=== PATIENT | female | born 1965 | race Caucasian/White ===

== ENCOUNTER 2021-10-03 10:29 | Outpatient (CLI) | payer SELFPAY ==
--- NOTE | 2021-10-11 09:35 | Mammography Report ---
BILATERAL DIGITAL SCREENING MAMMOGRAM 3D/2D: 10/03/2021 CLINICAL: Routine screening. No prior exams were available for comparison. There are scattered fibroglandular elements in both br easts. There are benign calcifications in the right breast. There is a mole marker on the left breast. No significant masses, calcifications, or other findings are seen in either breast. IMPRESSION: BENIGN There is no mammographic evidence of malignancy. A 1 year screening mammogram is recommended. This exam was interpreted at Station ID: [id number]. NOTE: For mammograms, a report in lay terms will be sent to the patient. Approximately 15% of breast malignancies will not be visualized mammographically. In the management of a palpable breast mass, a negative mammogram must not discourage biopsy of a clinically suspicious lesion. Electronically Signed By: Natalio cohen/isra:10/10/2021 09:14:20 ACR BI-RADS Category 2: Benign Finding(s) 3342F PARENCHYMAL PATTERN: (A) - The breast(s) demonstrate(s) scattered fibroglandular densities. BI-RADS CATEGORY: (2) - 2 RECOMMENDATION: (ANNUAL) - Recommend routine annual screening mammography. [id number] 1 year screening LATERALITY: (B)
== END 2021-10-03 10:30 | disposition home or self-care (01) ==
LOC: DI.N 10:29
PROVIDERS: ATTEND Internal Medicine
DX: Z12.31 Encounter for screening mammogram for malignant neoplasm of breast (principal)

== ENCOUNTER 2022-01-23 12:41 | Emergency (ER) | payer BC ==
--- NOTE | 2022-01-23 13:01 | ED Physician Documentation ---
PD HPI HEADACHE - Stated complaint Stated Complaint: HEAD/NECK PX - Chief complaint Chief Complaint: General - History obtained from History obtained from: Patient - History of Present Illness Timing - onset: How many days ago (3) Timing - duration: Days (3) Timing - details: Gradual onset, Still present Worst headache ever?: Worst headache ever? Location: Left Quality: Throbbing, Aching Associated symptoms: Other (red spotty rash is developing today.). No: Fever, Stiff neck, Nausea, Vomiting Contributing factors: Recent illness (she states had some URI symptoms couple of weeks ago.). No: Anticoagulated, Hypertension, Trauma Review of Systems Constitutional: denies: Fever, Chills Eyes: denies: Loss of vision, Decreased vision, Photophobia, Irritation Nose: denies: Rhinorrhea / runny nose, Congestion Throat: denies: Sore throat Cardiac: denies: Chest pain / pressure Respiratory: denies: Cough GI: reports: Nausea. denies: Abdominal Pain, Vomiting, Diarrhea Skin: reports: Rash (just starting today. Has had the facial pain for 3 days none too gradually increasing.) Neurologic: denies: Focal weakness, Numbness, Confused, Altered mental status, Headache (facial pain she clarifies.) PD PAST MEDICAL HISTORY - Past Medical History Cardiovascular: None Neuro: None - Present Medications Home Medications: Ambulatory Orders Medication Instructions Recorded Confirmed Amitriptyline [Elavil] 25 mg PO HS #20 tablet 01/23/22 Valacyclovir HCl [Valtrex] 1,000 mg PO TID #20 tablet 01/23/22 dexAMETHasone [Decadron] 4 mg PO DAILY #5 tablet 01/23/22 oxyCODONE [Roxicodone] 5 mg PO Q6H PRN #20 tablet 01/23/22 - Allergies Allergies/Adverse Reactions: Allergies Allergy/AdvReac Type Severity Reaction Status Date / Time escitalopram [From Lexapro] Allergy Anxiety Verified 01/23/22 12:46 metronidazole [From Flagyl] Allergy Emesis Verified 01/23/22 12:50 - Living Situation Living Situation: reports: With family Living Arrangement: reports: At home PD ED PE NORMAL - General General: Alert and oriented X 3, Well developed/nourished, Other (appears in notable pain left side of face. ) - HEENT HEENT: Atraumatic, PERRL, EOMI, Ears normal, Pharynx benign - Neck Neck: Supple, no meningeal sign, No bony TTP, No adenopathy, C-Spine cleared by NEXUS criteria - Cardiac Cardiac: RRR, No murmur - Respiratory Respiratory: No respiratory distress - Abdomen Abdomen: Soft, Non tender - Derm Derm: Normal color, Warm and dry, Other (left side of face has tenderness to light touch and palpation. There are several small red patches with points/prevesicals in clusters. Does not cross to right at all and demarcates under chin, toward the neck on left only.) - Neuro Neuro: Alert and oriented X 3, No motor deficit, Normal speech Results - Vitals Vitals: Vital Signs - 24 hr 01/23/22 01/23/22 01/23/22 12:47 12:49 13:51 Temperature 36.5 C 36.5 C 36.5 C Heart Rate 100 100 90 Respiratory 16 16 16 Rate Blood Pressure 154/88 H 154/88 H 140/80 H O2 Saturation 98 98 98 Oxygen O2 Source Room air PD MEDICAL DECISION MAKING - ED course Complexity details: considered differential (looks and sounds like shingles. ), d/w patient Departure - Departure Disposition: Home, Self Care Clinical Impression: Acute trigeminal herpes zoster Condition: Stable Record reviewed to determine appropriate education?: Yes Instructions: ED Shingles Follow-Up: Gale Patel MD [Primary Care Provider] - Prescriptions: dexAMETHasone [Decadron] 4 mg PO DAILY #5 tablet Amitriptyline [Elavil] 25 mg PO HS #20 tablet oxyCODONE [Roxicodone] 5 mg PO Q6H PRN #20 tablet PRN Reason: Pain Valacyclovir HCl [Valtrex] 1,000 mg PO TID #20 tablet Comments: This looks like a shingles outbreak which is a remnant chickenpox virus coming out in the nerve root. We will treat this with Dona acyclovir antiviral medicine 3 times a day for a week as well as Decadron steroid dose for the next 5 days. I realize you are on low-dose prednisone for your psoriasis. Hold that dose for now and resume the taper you were on after the 5 days. Also add amitriptyline low-dose at night for the next few weeks to try to help with the nerve pain component of this. Continue your other usual medicines. Add Tylenol 500 mg 4 times daily to help with pain and oxycodone every 6 hours if needed for worse pain. There should be a diminishing of the pain after few days on the medications. I sent your prescriptions to your pharmacy. I am prescribing a short course of narcotic pain medication for you. These are potentially dangerous and addictive medications that should be used carefully. These medications may constipate you. Take an chud-uur-ztphyca stool softener such as docusate twice daily with plenty of water while taking these medications. If you go 24 hours without a bowel movement, take [id number] MiraLAX, per package instructions. Do not drink or drive while taking these medications. If you received narcotic or sedating medications while in the emergency department do not drive for 24 hours. Store this medication in a safe, secure place and out of reach of children. It is a violation of federal law to give or sell this medication to another person or to use in a manner other than prescribed. The ED will not refill narcotic prescriptions, including prescriptions lost or stolen. You can dispose of unwanted medications at the [facility]'s office or at several pharmacies such as [facility]. Discharge Date/Time: 01/23/22 13:51
[2022-01-23] MEDS ORDERED: ONDANSETRON ODT 4 MG TABLET TL STA (13:24)
[2022-01-23] MEDS ORDERED: KETOROLAC 30 MG/ML VIAL IM STA (13:24)
[2022-01-23] MEDS ORDERED: DEXAMETHASONE 10 MG/ML VIAL PO STA (13:24)
[2022-01-23] MEDS ORDERED: CHERRY SYRUP 10 ML UDC PO ONE (13:24)
[2022-01-23] MEDS ORDERED: HYDROmorphone 1 MG/ML CARPUJECT IM STA (13:24)
[2022-01-23] MEDS ORDERED: valACYclovir 500 MG TABLET PO STA (13:35)
[2022-01-23 13:52] VITALS: BP 140/80
[2022-01-23] MEDS ORDERED: valACYclovir 500 MG TABLET PO SCH (14:00)
== END 2022-01-23 13:51 | disposition home or self-care (01) ==
LOC: ED 12:41
DX: B02.22 Postherpetic trigeminal neuralgia (principal)
CPT/HCPCS: 96372; 99284; A9270; J1170; Q0162

== ENCOUNTER 2022-05-22 10:56 | Outpatient (CLI) | payer BC ==
[2022-05-22 11:14] LABS: CREATININE 0.6 mg/dL (0.4-1.0)
[2022-05-22] MEDS ORDERED: iohexoL-300 100 ML VIAL ONE (11:18)
--- NOTE | 2022-05-22 15:36 | CT Report ---
PROCEDURE: SOFT TISSUE NECK W INDICATIONS: MASS OR LUMP OF NECK CONTRAST: 100ml Omnipaque 300 TECHNIQUE: After the administration of intravenous contrast, 3.0 mm axial sections acquired from the sella to th e aortic arch. Additional oblique axial 3.0 mm sections acquired through the pharynx. 3 mm thick co savanna reformats were generated. For radiation dose reduction, the following was used: automated exp osure control, adjustment of mA and/or kV according to patient size. COMPARISON: None. FINDINGS: Image quality: Excellent. Lymph nodes: No enlarged lymph nodes seen throughout the neck. Vessels: Visualized vasculature appears patent. Neck spaces: The oropharynx, nasopharynx, and pharynx demonstrate no mucosal lesions. The vocal cor ds, false vocal cords, pyriform sinuses, epiglottis, vallecula, and tongue base all appear normal. E xtramucosal spaces appear unremarkable. Glands: The parotid and submandibular glands appear normal. The thyroid is normal in size and there are no incidental findings. Miscellaneous: Visualized brain and orbits appear normal. Lung apices appear clear. Superficial so ft tissues appear normal. Bones: No suspicious bony lesions. Visualized sinuses and mastoids appear unremarkable. IMPRESSION: No visualized abnormal mass. CLINICAL RECOMMENDATION STATEMENTS: In patients <35 years with an ITN detected on CT, MRI, or extrathyroidal ultrasound, the Committee re commends further evaluation with dedicated thyroid ultrasound if the nodule is "e1 cm and has no susp icious imaging features, and if the patient has normal life expectancy. In patients "e35 years with an ITN detected on CT, MRI, or extrathyroidal ultrasound, the Committee r ecommends further evaluation with dedicated thyroid ultrasound if the nodule is "e1.5 cm and has no s uspicious imaging features, and if the patient has normal life expectancy. (ACR, 2014) Reviewed by: Caitlin Ba MD on 05/22/2022 3:35 PM PDT Approved by: Caitlin Ba MD on 05/22/2022 3:35 PM PDT Station ID: [id number]
[2022-05-22] MEDS ORDERED: iohexoL-300 100 ML VIAL IVP ONE (16:47)
== END 2022-05-22 10:57 | disposition home or self-care (01) ==
LOC: LAB 10:56
PROVIDERS: ATTEND Internal Medicine
DX: R22.1 Localized swelling, mass and lump, neck (principal); Z79.899 Other long term (current) drug therapy
CPT/HCPCS: 36415; 70491; 82565; Q9967

== ENCOUNTER 2023-01-29 09:28 | Emergency (ER) | payer BC ==
--- NOTE | 2023-01-29 09:42 | ED Physician Documentation ---
PD HPI CHEST PAIN - Stated complaint Stated Complaint: CHEST PX - History obtained from History obtained from: Patient - History of Present Illness Timing - onset: How many days ago (3) Timing - onset during: Rest. No: Light activity, Exertion Timing - duration: Days (3) Timing - details: Gradual onset, Still present (increasingly worse.) Quality: Aching, Sharp, Pain. No: Pressure, Tightness Location: Right chest (upper sternal area to right, none to left, extending to right medial clavicular area.) Improved by: Rest Worsened by: Movement, Palpation. No: Inspiration Associated symptoms: No: Shortness of air, Nausea, Vomiting, Feeling faint / dizzy Similar symptoms before: Has not had sx before Recently seen: Not recently seen Review of Systems Constitutional: denies: Fever, Chills Nose: denies: Rhinorrhea / runny nose, Congestion Throat: denies: Sore throat Respiratory: denies: Cough Musculoskeletal: denies: Extremity swelling Neurologic: denies: Focal weakness, Numbness, Altered mental status PD PAST MEDICAL HISTORY - Past Medical History Cardiovascular: None Neuro: None - Present Medications Home Medications: Ambulatory Orders Medication Instructions Recorded Confirmed Amitriptyline [Elavil] 25 mg PO HS #20 tablet 01/23/22 Valacyclovir HCl [Valtrex] 1,000 mg PO TID #20 tablet 01/23/22 dexAMETHasone [Decadron] 4 mg PO DAILY #5 tablet 01/23/22 oxyCODONE [Roxicodone] 5 mg PO Q6H PRN #20 tablet 01/23/22 Valacyclovir HCl [Valtrex] 1,000 mg PO TID #21 tablet 01/29/23 dexAMETHasone [Decadron] 4 mg PO DAILY #7 tablet 01/29/23 oxyCODONE [Roxicodone] 5 mg PO Q6H PRN #20 tablet 01/29/23 - Allergies Allergies/Adverse Reactions: Allergies Allergy/AdvReac Type Severity Reaction Status Date / Time escitalopram [From Lexapro] Allergy Anxiety Verified 01/23/22 12:46 metronidazole [From Flagyl] Allergy Emesis Verified 01/23/22 12:50 PD ED PE NORMAL - Vitals Vital signs reviewed: Yes - General General: Alert and oriented X 3, No acute distress, Well developed/nourished - HEENT HEENT: Pharynx benign - Neck Neck: Supple, no meningeal sign, No adenopathy - Respiratory Respiratory: No respiratory distress, Clear bilaterally - Abdomen Abdomen: Soft, Non tender - Derm Derm: Normal color, Warm and dry, No rash, Other (skin ans soft tissue sensitive in the area right of sternum. ) - Extremities Extremities: No edema, No calf tenderness / cord Results - Vitals Vitals: Vital Signs - 24 hr 01/29/23 01/29/23 09:36 11:03 Temperature 36.7 C Heart Rate 89 84 Respiratory 18 17 Rate Blood Pressure 171/77 H 148/76 H O2 Saturation 98 96 Oxygen O2 Source Room air - EKG (time done) 09:36 EKG releavant findings:: EKG personally interpreted by author of this note. Relevant findings are: Rate: Rate (enter#) (79) Rhythm: NSR [place]: Normal Intervals: Normal [place] QRS: Normal, Low voltage Ischemia: Normal ST segments. No: ST elevation c/w ischemia, ST depression - Labs Labs: Laboratory Tests 01/29/23 01/29/23 01/29/23 10:11 10:11 10:11 WBC 4.4 L RBC 4.71 Hgb 13.7 Hct 41.2 MCV 87.5 MCH 29.1 MCHC 33.3 RDW 13.2 Plt Count 236 MPV 9.3 Neut # (Auto) 2.4 Lymph # (Auto) 1.6 [place] # (Auto) 0.3 Eos # (Auto) 0.1 Baso # (Auto) 0.0 Absolute Nucleated RBC 0.00 Nucleated RBC % 0.0 Sodium 138 Potassium 3.6 Chloride 102 Carbon Dioxide 28 Anion Gap 8.0 BUN 14 Creatinine 0.6 Estimated GFR (MDRD) 103 Glucose 160 H Calcium 9.0 Total Bilirubin 0.6 AST 30 ALT 43 Alkaline Phosphatase 55 Total Creatine Kinase 41 Troponin I High Sens < 2.3 L Total Protein 6.7 Albumin 3.5 Globulin 3.2 Albumin/Globulin Ratio 1.1 Lipase 35 - Rads (name of study) chest xray Relevant Findings:: Prelim report reviewed, EMP independent interpretation of test (no acute process. ), See rad report PD Medical Decision Making - ED course Complexity details: reviewed results (normal ECG and chest xray. Troponin is negative. CBC and rest of chem panel is normal. ), considered differential (has tendernes to tocuch in area, pain with movement and breathing right chest to shoulder area. No rash. ECG, CXR, and labs are normal. Myofaxcial pain or consider early shingles, etc. ), d/w patient Departure - Departure Disposition: 01 Home, Self Care Clinical Impression: Right-sided chest pain, Chest wall pain Condition: Stable Record reviewed to determine appropriate education?: Yes Instructions: ED Chest Pain Costochondritis Follow-Up: Gale Patel MD [Primary Care Provider] - Prescriptions: dexAMETHasone [Decadron] 4 mg PO DAILY #7 tablet oxyCODONE [Roxicodone] 5 mg PO Q6H PRN #20 tablet PRN Reason: Pain Valacyclovir HCl [Valtrex] 1,000 mg PO TID #21 tablet Comments: Your EKG, chest x-ray, blood tests including 1 to look for heart injury called troponin are all normal. The character of this pain seems musculoskeletal. We can treat it with anti-inflammatories and Tylenol and pain medicines. I also wrote a prescription for valacyclovir and Decadron steroid to hold onto in see if this blossoms with any kind of rash that may suggest or confirm shingles. If it does then add those medicines as well. I sent prescription for some pain medicine to [facility] pharmacy. Use ibuprofen 2 to 3 tablets 3 times daily with food regularly for the next week or so. Add Tylenol 500 to 650 mg 4 times daily for pain. To that add oxycodone every 6 hours if needed for worse pain. If it is inflammatory musculoskeletal, I would anticipate improving over the next few days and resolving in 3 to 5 days or so. Recheck if not improving in that timeframe. Again watch for other symptoms to develop. My narcotic instructions I am prescribing a short course of narcotic pain medication for you. These are potentially dangerous and addictive medications that should be used carefully. These medications may constipate you. Take an tksf-eux-tkouulp stool softener such as docusate twice daily with plenty of water while taking these medications. If you go 24 hours without a bowel movement, take [id number]-akz-[id number] MiraLAX, per package instructions. Do not drink or drive while taking these medications. If you received narcotic or sedating medications while in the emergency department do not drive for 24 hours. Store this medication in a safe, secure place and out of reach of children. It is a violation of federal law to give or sell this medication to another person or to use in a manner other than prescribed. The ED will not refill narcotic prescriptions, including prescriptions lost or stolen. You can dispose of unwanted medications at the [facility]'s office or at several pharmacies such as [facility]. Discharge Date/Time: 01/29/23 11:03
[2023-01-29] MEDS ORDERED: ACETAMINOPHEN 500 MG TABLET PO STA (10:16)
[2023-01-29 10:31] LABS: BASOPHILS % (AUTO) 0.7 %; EOSINOPHILS # (AUTO) 0.1 10^3/uL (0.0-0.7); EOSINOPHILS % (AUTO) 2.5 %; HCT - HEMATOCRIT 41.2 % (37.0-47.0); HGB - HEMOGLOBIN 13.7 g/dL (12.0-16.0); LYMPHOCYTES # (AUTO) 1.6 10^3/uL (1.5-3.5); LYMPHOCYTES % (AUTO) 35.4 %; MEAN CORPUSCULAR HEMOGLOBIN 29.1 pg (27.0-31.0); MEAN CORPUSCULAR HGB CONC 33.3 g/dL (32.0-36.0); MEAN CORPUSCULAR VOLUME 87.5 fL (81.0-99.0); MEAN PLATELET VOLUME 9.3 fL (7.9-10.8); MONOCYTES # (AUTO) 0.3 10^3/uL (0.0-1.0); MONOCYTES % (AUTO) 7.4 %; NEUTROPHILS # (AUTO) 2.4 10^3/uL (1.5-6.6); NEUTROPHILS % (AUTO) 53.8 %; PLT - PLATELET COUNT 236 10^3/uL (130-450); RED BLOOD COUNT 4.71 10^6/uL (4.20-5.40); RED CELL DISTRIBUTION WIDTH 13.2 % (12.0-15.0); WHITE BLOOD COUNT 4.4 x10^3/uL (4.8-10.8)
[2023-01-29 10:32] LABS: ALBUMIN 3.5 g/dL (3.2-5.5); ALBUMIN/GLOBULIN RATIO 1.1 (1.0-2.2); BILIRUBIN,TOTAL 0.6 mg/dL (0.2-1.0); CREATININE 0.6 mg/dL (0.4-1.0); POTASSIUM 3.6 mmol/L (3.5-5.0); TOTAL PROTEIN 6.7 g/dL (6.7-8.2)
[2023-01-29] MEDS ORDERED: dexAMETHasone 4 MG TABLET PO STA (10:38)
--- NOTE | 2023-01-29 10:48 | XRAY Report ---
PROCEDURE: Chest 1 View X-Ray INDICATIONS: Chest Pain TECHNIQUE: One view of the chest was acquired. COMPARISON: None. FINDINGS: Surgical changes and devices: None. Lungs and pleura: No pleural effusions or pneumothorax. Lungs are clear. Mediastinum: Mediastinal contours appear normal. Heart size is normal. Bones and chest wall: No suspicious bony lesions. Overlying soft tissues appear unremarkable. IMPRESSION: No acute cardiopulmonary process. Reviewed by: Francisco Masters MD on 01/29/2023 10:46 AM PDT Approved by: Francisco Masters MD on 01/29/2023 10:46 AM PDT Station ID: [id number]
[2023-01-29 11:09] VITALS: BP 148/76
== END 2023-01-29 11:03 | disposition home or self-care (01) ==
LOC: ED 09:28
DX: R07.89 Other chest pain (principal)
CPT/HCPCS: 36415; 71045; 80053; 82550; 83690; 84484; 85025; 93005; 99284; A9270; J8540

== ENCOUNTER 2023-02-12 11:38 | Emergency (ER) | payer BC ==
--- NOTE | 2023-02-12 12:22 | ED Physician Documentation ---
PD HPI CHEST PAIN - Stated complaint Stated Complaint: CHEST PX,BODY NUMBNESS - Chief complaint Chief Complaint: Cardiac - History obtained from History obtained from: Patient - History of Present Illness Timing - onset: How many weeks ago (2) Pain level max: 7 Pain level now: 5 Quality: Pain Location: Right chest (Right anterior chest wall). No: Substernal Improved by: No: Rest Worsened by: No: Exertion, Inspiration Associated symptoms: No: Shortness of air, Diaphoresis, Nausea, Vomiting, Feeling faint / dizzy, General Weakness, Palpitations - Additional information Additional information: 58-year-old female presents to the emergency department with right-sided chest wall pain. This been ongoing for the past 2 weeks. She was seen here previously for same. She was placed on pain medication and steroids. She states that the pain is still present. No fevers. No chills. No trauma. Worse with palpation, movement, coughing, sneezing. She denies any recent illnesses. No fevers. No recent travel. No hormonal therapy. She does smoke. Patient also states that she has occasional "shooting pains to her bilateral face and bilateral lower extremities. Mainly below the knees. No abdominal or back pain. No vision changes. No taste changes. No focal neurological deficits. 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: Oophrectomy, Breast reduction - Present Medications Home Medications: Ambulatory Orders Medication Instructions Recorded Confirmed Amitriptyline [Elavil] 25 mg PO HS #20 tablet 01/23/22 Valacyclovir HCl [Valtrex] 1,000 mg PO TID #20 tablet 01/23/22 dexAMETHasone [Decadron] 4 mg PO DAILY #5 tablet 01/23/22 oxyCODONE [Roxicodone] 5 mg PO Q6H PRN #20 tablet 01/23/22 Valacyclovir HCl [Valtrex] 1,000 mg PO TID #21 tablet 01/29/23 dexAMETHasone [Decadron] 4 mg PO DAILY #7 tablet 01/29/23 oxyCODONE [Roxicodone] 5 mg PO Q6H PRN #20 tablet 01/29/23 - Allergies Allergies/Adverse Reactions: Allergies Allergy/AdvReac Type Severity Reaction Status Date / Time escitalopram [From Lexapro] Allergy Anxiety Verified 02/12/23 11:44 metronidazole [From Flagyl] Allergy Emesis Verified 02/12/23 11:44 - Social History Does the pt smoke?: Yes Smoking Status: Current every day smoker - Family History Family history: reports: Non contributory - POLST Patient has POLST: No PD ED PE NORMAL - Vitals Vital signs reviewed: Yes - General General: Alert and oriented X 3, No acute distress - HEENT HEENT: PERRL, Moist mucous membranes - Neck Neck: Supple, no meningeal sign - Cardiac Cardiac: RRR, No murmur, Strong equal pulses - Respiratory Respiratory: No respiratory distress, Clear bilaterally - Abdomen Abdomen: Soft, Non tender, Non distended - Derm Derm: Warm and dry - Extremities Extremities: No deformity, No edema, No calf tenderness / cord - Neuro Neuro: Alert and oriented X 3 - Psych Psych: Normal mood, Normal affect - Free text exam Free text exam: Tender to palpation across the anterior chest wall. Reproduces her pain. No crepitus. No ecchymosis. Diffusely tender. No skin changes. No breast changes Results - Vitals Vitals: Vital Signs - 24 hr 02/12/23 02/12/23 02/12/23 11:44 12:13 12:54 Temperature 36.5 C Heart Rate 88 86 Respiratory 16 17 16 Rate Blood Pressure 150/90 H 161/79 H O2 Saturation 98 99 02/12/23 02/12/23 13:43 15:21 Temperature Heart Rate 77 73 Respiratory 18 18 Rate Blood Pressure 144/88 H 141/85 H O2 Saturation 97 97 Oxygen O2 Source Room air - EKG (time done) 1259 EKG releavant findings:: EKG personally interpreted by author of this note. Relevant findings are: Rate: Rate (enter#) (70) Rhythm: NSR [place]: Normal Intervals: Normal [place] QRS: Normal Ischemia: Normal ST segments - Labs Labs: Laboratory Tests 02/12/23 02/12/23 02/12/23 12:25 12:25 12:25 WBC 6.3 RBC 4.89 Hgb 14.0 Hct 41.8 MCV 85.5 MCH 28.6 MCHC 33.5 RDW 12.7 Plt Count 263 MPV 9.3 Neut # (Auto) 3.6 Lymph # (Auto) 2.0 [place] # (Auto) 0.5 Eos # (Auto) 0.1 Baso # (Auto) 0.0 Absolute Nucleated RBC 0.00 Nucleated RBC % 0.0 Sodium 138 Potassium 4.1 Chloride 104 Carbon Dioxide 26 Anion Gap 8.0 BUN 13 Creatinine 0.7 Estimated GFR (MDRD) 86 L Glucose 131 H Calcium 9.5 Phosphorus Magnesium Total Bilirubin 0.5 AST 32 ALT 41 Alkaline Phosphatase 59 Troponin I High Sens < 2.3 L Total Protein 7.2 Albumin 3.9 Globulin 3.3 Albumin/Globulin Ratio 1.2 Lipase 32 02/12/23 12:25 WBC RBC Hgb Hct MCV MCH MCHC RDW Plt Count MPV Neut # (Auto) Lymph # (Auto) [place] # (Auto) Eos # (Auto) Baso # (Auto) Absolute Nucleated RBC Nucleated RBC % Sodium Potassium Chloride Carbon Dioxide Anion Gap BUN Creatinine Estimated GFR (MDRD) Glucose Calcium Phosphorus 3.1 Magnesium 1.7 Total Bilirubin AST ALT Alkaline Phosphatase Troponin I High Sens Total Protein Albumin Globulin Albumin/Globulin Ratio Lipase - Rads (name of study) CT pulmonary angiogram Relevant Findings:: Final report received, See rad report PD Medical Decision Making - ED course Complexity details: reviewed results, re-evaluated patient, considered differential (No ST elevation [place], no aortic dissection, no PE, no tension pneumothorax, no aortic aneurysm), d/w patient ED course: 58-year-old female with chest wall pain of unclear etiology. She states that she did not try the steroids at home, I recommended that she do take these. Her CT pulmonary angiogram does not show any evidence of PE. Her laboratory testing does not show any acute abnormalities. EKG is without acute abnormalities. She does have rheumatoid arthritis, possible autoimmune inflammation? She will follow-up with her sheeting puller for further care. Declines pain medication here or for home. Patient counseled regarding signs and symptoms for which I believe and urgent re-evaluation would be necessary. Patient with good understanding of and agreement to plan and is comfortable going home at this time This document was made in part using voice recognition software. While efforts are made to proofread this document, sound alike and grammatical errors may occur. Her magnesium was slightly low and she was given 2 g of magnesium IV in the emergency department. No focal neurological deficits. NIH stroke scale of 0. Paresthesias are on both sides of the body. None currently Departure - Departure Disposition: 01 Home, Self Care Clinical Impression: Right-sided chest pain, Chest wall pain, Hypomagnesemia, Paresthesia Condition: Good Instructions: ED Chest Pain NonCardiac Follow-Up: Gale Patel MD [Primary Care Provider] - Within 1 week Comments: Please follow-up with your doctor for further care. The cause of your symptoms is unclear today. Your CT scan does not show any acute abnormalities. Your CBC is normal including your white blood cell count. Your chemistries do show a mildly low magnesium so this was replaced. Your heart tests are normal. I would recommend starting the steroids that you are prescribed previously to see if this helps your symptoms. If you are not improving as expected, your sheeting puller may wish to do further work-up for possible autoimmune conditions. Discharge Date/Time: 02/12/23 15:35
[2023-02-12 12:32] LABS: BASOPHILS % (AUTO) 0.6 %; EOSINOPHILS # (AUTO) 0.1 10^3/uL (0.0-0.7); EOSINOPHILS % (AUTO) 1.4 %; HCT - HEMATOCRIT 41.8 % (37.0-47.0); LYMPHOCYTES % (AUTO) 32.4 %; MEAN CORPUSCULAR HEMOGLOBIN 28.6 pg (27.0-31.0); MEAN CORPUSCULAR HGB CONC 33.5 g/dL (32.0-36.0); MEAN CORPUSCULAR VOLUME 85.5 fL (81.0-99.0); MEAN PLATELET VOLUME 9.3 fL (7.9-10.8); MONOCYTES # (AUTO) 0.5 10^3/uL (0.0-1.0); MONOCYTES % (AUTO) 7.5 %; NEUTROPHILS # (AUTO) 3.6 10^3/uL (1.5-6.6); NEUTROPHILS % (AUTO) 57.8 %; PLT - PLATELET COUNT 263 10^3/uL (130-450); RED BLOOD COUNT 4.89 10^6/uL (4.20-5.40); RED CELL DISTRIBUTION WIDTH 12.7 % (12.0-15.0); WHITE BLOOD COUNT 6.3 x10^3/uL (4.8-10.8)
[2023-02-12 13:12] LABS: ALBUMIN 3.9 g/dL (3.2-5.5); ALBUMIN/GLOBULIN RATIO 1.2 (1.0-2.2); BILIRUBIN,TOTAL 0.5 mg/dL (0.2-1.0); CALCIUM 9.5 mg/dL (8.5-10.3); CREATININE 0.7 mg/dL (0.4-1.0); POTASSIUM 4.1 mmol/L (3.5-5.0); TOTAL PROTEIN 7.2 g/dL (6.7-8.2)
[2023-02-12] MEDS ORDERED: iohexoL-300 100 ML VIAL ONE (13:26)
[2023-02-12 13:28] LABS: MAGNESIUM 1.7 mg/dL (1.7-2.8); PHOSPHORUS 3.1 mg/dL (2.5-4.6)
[2023-02-12] MEDS ORDERED: MAGNESIUM SULFATE 2 GRAM 2 GM/50 ML BAG IV ONE (13:42)
[2023-02-12] MEDS ORDERED: iohexoL-300 100 ML VIAL IVP ONE (14:04)
--- NOTE | 2023-02-12 14:27 | CT Report ---
PROCEDURE: ANGIO CHEST W/WO INDICATIONS: R sided pleuritic chest pain CONTRAST: 80ml Omni 300 TECHNIQUE: After the administration of intravenous contrast, 2 mm axial images were acquired from the pulmonary apices to the posterior costophrenic angles during the arterial phase. In addition, 1 mm lung kernel and 5 mm soft tissue kernel reconstructions were performed. 3-dimensional coronal oblique maximum int ensity projection (MIP) reformats, 8 mm axial MIP, and 5 mm coronal and sagittal MPR reformats were t hen performed through the thorax. For radiation dose reduction, the following was used: automated exp osure control, adjustment of mA and/or kV according to patient size. COMPARISON: Chest x-ray 01/29/2023 FINDINGS: Image quality: Excellent. Large vessels: No filling defects within the opacified pulmonary arteries, accounting for motion and contrast timing. No evidence of acute aortic syndrome or aortic aneurysm. Lungs and pleura: No consolidation. No pleural effusions. No pneumothorax. No suspicious pulmonary n odules which require follow up. Mediastinum: Heart size is normal. No pericardial effusion. No large vessel abnormality. No mediastin al adenopathy by size criteria. Chest wall and lower neck: Thyroid is unremarkable. No axillary or supraclavicular adenopathy by size . Bones: No aggressive osseous abnormality. Upper Abdomen: The bladder is been removed. IMPRESSION: Lungs are clear. No pulmonary embolism. Reviewed by: Caitlin Ba MD on 02/12/2023 2:26 PM PDT Approved by: Caitlin Ba MD on 02/12/2023 2:26 PM PDT Station ID: [id number]
[2023-02-12] MEDS ORDERED: DEXAMETHASONE 10 MG/ML VIAL IVP STA (15:16)
[2023-02-12] MEDS ORDERED: KETOROLAC 30 MG/ML VIAL IVP STA (15:16)
[2023-02-12 15:29] VITALS: BP 141/85
== END 2023-02-12 15:35 | disposition home or self-care (01) ==
LOC: ED 11:38
DX: R07.89 Other chest pain (principal); E83.42 Hypomagnesemia; R20.2 Paresthesia of skin; E11.9 Type 2 diabetes mellitus without complications; F17.200 Nicotine dependence, unspecified, uncomplicated; Z79.899 Other long term (current) drug therapy
CPT/HCPCS: 36415; 71275; 80053; 83690; 83735; 84100; 84484; 85025; 93005; 96374; 96375; 99284; Q9967

== ENCOUNTER 2023-06-28 09:01 | Outpatient (CLI) | payer BC ==
--- NOTE | 2023-06-28 10:12 | Ultrasound Report ---
PROCEDURE: Abdomen Limited INDICATIONS: RUQ PAIN TECHNIQUE: Real-time focused scanning was performed of the abdomen, with image documentation. COMPARISONS: None. FINDINGS: Liver: Liver is normal in size and homogeneous in echotexture. The parenchyma is diffusely echogenic . The main portal vein is patent with hepatopedal flow. Gallbladder: Absent. Biliary ducts: Intrahepatic bile ducts are non-dilated. Extrahepatic bile duct caliber measures 4 m m. Normal is 6-7 mm or less in diameter, or 10 mm or less post-cholecystectomy. Pancreas: Not well visualized secondary to bowel gas. Right kidney: Normal in size and echotexture. Right kidney measures 10.4 cm long. No hydronephrosis or nephrolithiasis. No solid masses. No complex renal cystic lesions which require follow-up. IVC: Intrahepatic inferior vena cava is patent. Miscellaneous: No free abdominal fluid. IMPRESSION: 1. Liver parenchyma is diffusely echogenic suggestive of steatosis. 2. Cholecystectomy with no biliary ductal dilatation. 3. No right-sided hydronephrosis. Reviewed by: Rosa Maria Foster MD on 06/28/2023 10:11 AM PST Approved by: Rosa Maria Foster MD on 06/28/2023 10:11 AM PST Station ID: [id number]
== END 2023-06-28 09:02 | disposition home or self-care (01) ==
LOC: DI 09:01
PROVIDERS: ATTEND Internal Medicine
DX: R10.11 Right upper quadrant pain (principal); R93.2 Abnormal findings on diagnostic imaging of liver and biliary tract; Z90.49 Acquired absence of other specified parts of digestive tract

== ENCOUNTER 2023-10-10 10:00 | Outpatient (CLI) | payer BC ==
[2023-10-10 19:04] LABS: BASOPHILS % (AUTO) 0.7 %; EOSINOPHILS # (AUTO) 0.1 10^3/uL (0.0-0.7); EOSINOPHILS % (AUTO) 1.3 %; HCT - HEMATOCRIT 42.7 % (37.0-47.0); HGB - HEMOGLOBIN 13.8 g/dL (12.0-16.0); LYMPHOCYTES # (AUTO) 2.1 10^3/uL (1.5-3.5); LYMPHOCYTES % (AUTO) 35.2 %; MEAN CORPUSCULAR HEMOGLOBIN 29.2 pg (27.0-31.0); MEAN CORPUSCULAR HGB CONC 32.3 g/dL (32.0-36.0); MEAN CORPUSCULAR VOLUME 90.5 fL (81.0-99.0); MEAN PLATELET VOLUME 9.8 fL (7.9-10.8); MONOCYTES # (AUTO) 0.4 10^3/uL (0.0-1.0); MONOCYTES % (AUTO) 7.1 %; NEUTROPHILS # (AUTO) 3.3 10^3/uL (1.5-6.6); NEUTROPHILS % (AUTO) 55.4 %; PLT - PLATELET COUNT 270 10^3/uL (130-450); RED BLOOD COUNT 4.72 10^6/uL (4.20-5.40)
[2023-10-10 19:21] LABS: ALBUMIN 4.3 g/dL (3.2-5.5); ALBUMIN/GLOBULIN RATIO 1.4 (1.0-2.2); BILIRUBIN,TOTAL 0.4 mg/dL (0.2-1.0); CALCIUM 9.8 mg/dL (8.5-10.3); CREATININE 0.6 mg/dL (0.6-1.3); POTASSIUM 3.9 mmol/L (3.5-4.5); TOTAL PROTEIN 7.3 g/dL (6.4-8.9)
== END 2023-10-10 10:15 | disposition home or self-care (01) ==
LOC: LAB.N 10:00
PROVIDERS: ATTEND Physician Assistant Medical
DX: M54.50 Low back pain, unspecified (principal)
CPT/HCPCS: 36415; 80053; 85025

== ENCOUNTER 2023-12-11 13:02 | Outpatient (CLI) | payer BC ==
[2023-12-11 18:02] LABS: BASOPHILS % (AUTO) 0.6 %; EOSINOPHILS # (AUTO) 0.1 10^3/uL (0.0-0.7); EOSINOPHILS % (AUTO) 1.3 %; HCT - HEMATOCRIT 44.4 % (37.0-47.0); HGB - HEMOGLOBIN 14.5 g/dL (12.0-16.0); LYMPHOCYTES # (AUTO) 1.9 10^3/uL (1.5-3.5); LYMPHOCYTES % (AUTO) 35.7 %; MEAN CORPUSCULAR HEMOGLOBIN 29.1 pg (27.0-31.0); MEAN CORPUSCULAR HGB CONC 32.7 g/dL (32.0-36.0); MEAN CORPUSCULAR VOLUME 89.2 fL (81.0-99.0); MEAN PLATELET VOLUME 9.8 fL (7.9-10.8); MONOCYTES # (AUTO) 0.5 10^3/uL (0.0-1.0); MONOCYTES % (AUTO) 8.3 %; NEUTROPHILS # (AUTO) 2.9 10^3/uL (1.5-6.6); NEUTROPHILS % (AUTO) 53.9 %; PLT - PLATELET COUNT 279 10^3/uL (130-450); RED BLOOD COUNT 4.98 10^6/uL (4.20-5.40); WHITE BLOOD COUNT 5.4 x10^3/uL (4.8-10.8)
[2023-12-11 18:27] LABS: ALBUMIN 4.4 g/dL (3.2-5.5); ALBUMIN/GLOBULIN RATIO 1.5 (1.0-2.2); ALKALINE PHOSPHATASE 73 IU/L (42-121); ALT ALANINE AMINOTRANSFERASE 75 IU/L (10-60); AST ASPARTATE AMINOTRANSFERASE 61 IU/L (10-42); BILIRUBIN,TOTAL 0.6 mg/dL (0.2-1.0); BUN - BLOOD UREA NITROGEN 12 mg/dL (6-20); CALCIUM 10.3 mg/dL (8.5-10.3); CARBON DIOXIDE - CO2 29 mmol/L (21-32); CHLORIDE 101 mmol/L (101-111); CHOL/HDL RATIO 2.7 (<4.4); CHOLESTEROL 228 mg/dL; CREATININE 0.6 mg/dL (0.6-1.3); GFR - MDRD 103 (>89); GLUCOSE 143 mg/dL (74-104); HDL CHOLESTEROL 86 mg/dL; LDL CHOLESTEROL,CALCULATED 108 mg/dL; LDL/HDL RATIO 1.3 (<4.4); POTASSIUM 4.7 mmol/L (3.5-4.5); SODIUM 139 mmol/L (135-145); TOTAL PROTEIN 7.4 g/dL (6.4-8.9); TRIGLYCERIDES 172 mg/dL (48-352); VLDL CHOLESTEROL 34 mg/dL
[2023-12-11 18:31] LABS: THYROID STIMULATING HORMONE 2.11 uIU/mL (0.34-5.60)
[2023-12-11 21:42] LABS: ESTIMATED AVERAGE GLUCOSE 131 mg/dL (70-100); HEMOGLOBIN A1c% 6.2 % (4.27-6.07)
== END 2023-12-11 13:03 | disposition home or self-care (01) ==
LOC: LAB.N 13:02
PROVIDERS: ATTEND Nurse Practitioner Family
DX: E11.8 Type 2 diabetes mellitus with unspecified complications (principal); I10 Essential (primary) hypertension
CPT/HCPCS: 36415; 80053; 80061; 83036; 83721; 84443; 85025

== ENCOUNTER 2023-12-16 12:30 | Outpatient (CLI) | payer BC ==
--- NOTE | 2023-12-16 14:39 | XRAY Report ---
PROCEDURE: Foot 3+V RT INDICATIONS: OTHER FRACTURE OF RIGHT FOOT TECHNIQUE: 3 views of the foot were acquired. COMPARISON: None. FINDINGS: Bones: Mildly displaced fracture of the fifth metatarsal base. No suspicious bony lesions. Mild kelley ntar calcaneal enthesophyte. Soft tissues: No tibiotalar joint effusion. Achilles tendon appears normal. IMPRESSION: Mildly displaced fracture of the base of the fifth metatarsal. Reviewed by: Carlton Sutton MD on 12/16/2023 2:38 PM PDT Approved by: Carlton Sutton MD on 12/16/2023 2:38 PM PDT Station ID: [id number]
== END 2023-12-16 12:45 | disposition home or self-care (01) ==
LOC: DI.N 12:30
PROVIDERS: ATTEND Physician Assistant Medical
DX: S92.351A Displaced fracture of fifth metatarsal bone, right foot, initial encounter for closed fracture (principal)

== ENCOUNTER 2024-01-26 11:48 | Outpatient (CLI) | payer BC ==
--- NOTE | 2024-01-26 13:26 | XRAY Report ---
PROCEDURE: Foot 3+V RT (Weight Bearing) INDICATIONS: FX OF 5TH METATARSAL BONE, RIGHT FOOT TECHNIQUE: 3 views of the foot were acquired. COMPARISON: Right foot radiographs 12/24/2023, 12/16/2023. FINDINGS: Bones: The fifth metatarsal base fracture is stable. No dislocations. No suspicious bony lesions. S mall plantar calcaneal enthesophyte. Soft tissues: No tibiotalar joint effusion. Achilles tendon appears normal. IMPRESSION: Stable fifth metatarsal base fracture. Reviewed by: Natalio Lynn MD on 01/26/2024 1:25 PM PDT Approved by: Natalio Lynn MD on 01/26/2024 1:25 PM PDT Station ID: [id number]
== END 2024-01-26 11:49 | disposition home or self-care (01) ==
LOC: DI 11:48
PROVIDERS: ATTEND Orthopaedic Surgery
DX: S92.354D Nondisplaced fracture of fifth metatarsal bone, right foot, subsequent encounter for fracture with routine healing (principal)

== ENCOUNTER 2024-04-06 08:51 | Outpatient (CLI) | payer BC | END 2024-04-06 08:52 | disposition home or self-care (01) | LOC: DI.N 08:51 | DX: Z53.9 Procedure and treatment not carried out, unspecified reason (principal) ==